=== PATIENT | male | born 1975 | race Caucasian/White ===

== ENCOUNTER 2024-07-16 12:35 | Inpatient (IN) | payer SELFPAY ==
[2024-07-16] VITALS (7 sets, daily range): BP systolic 132–188; BP diastolic 68–94
[~2024-07-16] VITALS: Ht 167.6 cm; Wt 62.1 kg
[~2024-07-16 12:35] MED LIST: AMOXICILLIN500 MG PO; ANAPROX DS550 MG PO; BENTYL10 MG PO; CIPROFLOXACIN500 MG PO; CLEOCIN150 MG PO; DAYPRO600 M1 PO; DOLOBID500 MG PO; FLEXERIL10 MG PO; HYDROCODONE BIT1 T11 PO; MOTRIN800 MG PO; NAPROSYN500 MG PO; NKHM; PENICILLIN-VK500 M1 PO; PEPCID20 MG PO; PRILOSEC20 MG PO; TOBRADEX 0.1%-0.5 ML OPH; TRAMADOL HCL50 MG PO; VALIUM10 MG PO; VICODIN ES 7501 TAB PO; ZANTAC150 MG PO; ZOFRAN ODT4 MG PO
[2024-07-16] MEDS ORDERED: Acetaminophen/Oxycodone 5 MG/325 MG TABLET PO ONE (13:05)
[2024-07-16 14:29] LABS: BASO # 0.1 10*3/uL (0.0-0.1); BASO % 0.5 % (0.0-1.0); EOS # 0.4 10*3/uL (0.0-0.4); EOS % 3.6 % (1.0-4.0); HEMATOCRIT 41.4 % (42.0-52.0); LYMPH # 2.2 10*3/uL (1.3-4.4); LYMPH % 18.7 % (27.0-41.0); MEAN CELL VOLUME 90.6 fl (80.0-94.0); MEAN CORPUSCULAR HGB CONC 33.1 g/dl (33.0-37.0); MONO # 0.6 10*3/uL (0.1-1.0); MONO % 5.4 % (3.0-9.0); NEUT # 8.4 10*3/uL (2.3-7.9); NEUT % 71.5 % (47.0-73.0); PLATELET COUNT AUTOMATED 234 10*3/uL (130-400); RED BLOOD COUNT 4.57 10*6/uL (4.50-5.90); RED CELL DISTRI WIDTH 13.9 % (0-14.5); WHITE BLOOD COUNT 11.7 10*3/uL (4.8-10.8)
[2024-07-16 14:46] LABS: ACT PARTIAL THROMBO TIME 25.2 SECONDS (20.0-32.1)
[2024-07-16 14:51] LABS: ALKALINE PHOSPHATASE 54 U/L (46-116); BUN 9 mg/dl (9-23); CHLORIDE 109 mmol/L (98-107); POTASSIUM 3.9 mmol/L (3.4-5.1); SGPT/ALT 11 U/L (5-49); TOTAL PROTEIN 6.4 gm/dL (6.0-8.0)
[2024-07-16] MEDS ORDERED: Motrin,Rufen800 MG PO (15:01)
[2024-07-16] MEDS ORDERED: CYCLOBENZAPRINE10 MG PO (15:02)
[2024-07-16] MEDS ORDERED: Lidocaine Hydrochloride 30 ML VIAL SC ONE (15:15)
[2024-07-16] MEDS ORDERED: MORPHINE Sulfate 2 MG/ML SYR IV PRN (15:35)
[2024-07-16] MEDS ORDERED: DEXMEDETOMIDINE IN 0.9 % NACL 100 ML IV SCH (16:45)
[2024-07-16] MEDS ORDERED: BISACODYL 10 MG SUPP R PRN (16:55)
[2024-07-16] MEDS ORDERED: Ondansetron Hydrochloride 4 MG/2 ML VIAL IV PRN (16:55)
[2024-07-16] MEDS ORDERED: Magnesium Hydroxide 30 ML UDC PO PRN (16:55)
[2024-07-16] MEDS ORDERED: ACETAMINOPHEN 325 MG TAB PO PRN (16:55)
[2024-07-16] MEDS ORDERED: ACETAMINOPHEN 650 MG SUPP R PRN (16:55)
[2024-07-16] MEDS ORDERED: Acetaminophen/Hydrocodone 5 MG/325 MG TABLET PO PRN (16:55)
[2024-07-16] MEDS ORDERED: BISACODYL 5 MG TAB PO PRN (16:55)
[2024-07-16] MEDS ORDERED: Ketorolac Tromethamine 15 MG/ML VIAL IV ONE (20:20)
[2024-07-16] MEDS ORDERED: Ketorolac Tromethamine 15 MG/ML VIAL IM ONE (20:20)
[2024-07-17] VITALS (7 sets, daily range): BP systolic 142–169; BP diastolic 70–93
[2024-07-17 06:51] LABS: BASO # 0.1 10*3/uL (0.0-0.1); BASO % 0.8 % (0.0-1.0); EOS # 0.5 10*3/uL (0.0-0.4); EOS % 6.7 % (1.0-4.0); HEMATOCRIT 39.7 % (42.0-52.0); LYMPH # 2.2 10*3/uL (1.3-4.4); LYMPH % 28.8 % (27.0-41.0); MEAN CELL VOLUME 90.8 fl (80.0-94.0); MEAN PLATELET VOLUME 10.5 fl (9.6-12.3); MONO # 0.6 10*3/uL (0.1-1.0); MONO % 7.5 % (3.0-9.0); NEUT # 4.3 10*3/uL (2.3-7.9); NEUT % 55.8 % (47.0-73.0); PLATELET COUNT AUTOMATED 237 10*3/uL (130-400); RED BLOOD COUNT 4.37 10*6/uL (4.50-5.90); RED CELL DISTRI WIDTH 13.9 % (0-14.5); WHITE BLOOD COUNT 7.7 10*3/uL (4.8-10.8)
[2024-07-17 07:16] LABS: BUN 8 mg/dl (9-23); CHLORIDE 107 mmol/L (98-107); CHOLESTEROL 170 mg/dL (<200); FREE T4 0.99 ng/dl (0.89-1.76); LDL CHOLESTEROL 87 mg/dL (9-159); POTASSIUM 3.5 mmol/L (3.4-5.1); TRIGLYCERIDES 224 mg/dl (<150)
[2024-07-17 08:35] LABS: VITAMIN D, 25-HYDROXY 31.2 ng/mL (30-100)
[2024-07-17] MEDS ORDERED: fentaNYL CITRATE 100 MCG/2 ML VIAL IV PRN (09:10)
[2024-07-17] MEDS ORDERED: Enoxaparin Sodium 40 MG/0.4 ML SYR SC SCH (10:00)
[2024-07-17] MEDS ORDERED: Ketorolac Tromethamine 30 MG/ML VIAL IV SCH (14:00)
[2024-07-18] VITALS: BP 143/76
[2024-07-18] MEDS ORDERED: Ketorolac Tromethamine 15 MG/ML VIAL IV PRN (06:00)
[2024-07-18 08:00] VITALS: BP 143/76
[2024-07-18] MEDS ORDERED: IBUPROFEN 800 MG TAB PO PRN (11:35)
[2024-07-18 12:00] VITALS: BP 155/79
[2024-07-18] MEDS ORDERED: Cyclobenzaprine Hydrochlorid 10 MG TAB PO SCH (14:00)
[2024-07-18 16:00] VITALS: BP 134/75
[2024-07-18 20:00] VITALS: BP 143/88
[2024-07-19] VITALS: BP 160/82
[2024-07-19 08:00] VITALS: BP 144/80
[2024-07-19 12:00] VITALS: BP 153/73
[2024-07-19 16:00] VITALS: BP 159/86
[2024-07-19 20:00] VITALS: BP 162/82
[2024-07-20] VITALS: BP 155/77
[2024-07-20 06:40] LABS: BUN 11 mg/dl (9-23); CHLORIDE 108 mmol/L (98-107); POTASSIUM 3.6 mmol/L (3.4-5.1)
[2024-07-20 08:00] VITALS: BP 161/80
[2024-07-20 10:20] VITALS: BP 152/78
[2024-07-20 12:00] VITALS: BP 151/75
[2024-07-20] MEDS ORDERED: HYDROCODONE-AC1 EAC1 PO (12:19)
== END 2024-07-20 15:24 | disposition home or self-care (01) | DRG 200 ==
LOC: ED 12:35 → EDHOLD 16:06 → 4E 16:06 → EDHOLD 16:55 → 4E 07-17 12:02
PROVIDERS: Internal Medicine; Student in an Organized Health Care Education/Training Program; ADMIT Internal Medicine; ATTEND Internal Medicine
PROC: 0W9900Z Drainage of Right Pleural Cavity with Drainage Device, Open Approach (ICD-10-PCS; principal; 2024-07-16)
DX: S27.0XXA Traumatic pneumothorax, initial encounter (principal); J98.11 Atelectasis; Z71.6 Tobacco abuse counseling; J44.9 Chronic obstructive pulmonary disease, unspecified; E78.1 Pure hyperglyceridemia; S70.312A Abrasion, left thigh, initial encounter; S40.011A Contusion of right shoulder, initial encounter; S50.01XA Contusion of right elbow, initial encounter; F17.210 Nicotine dependence, cigarettes, uncomplicated; D72.9 Disorder of white blood cells, unspecified; R73.9 Hyperglycemia, unspecified; W01.0XXA Fall on same level from slipping, tripping and stumbling without subsequent striking against object, initial encounter; Y93.89 Activity, other specified; Y92.89 Other specified places as the place of occurrence of the external cause; Y99.8 Other external cause status

== ENCOUNTER 2024-07-24 19:04 | Emergency (ER) | payer SELFPAY ==
[~2024-07-24] VITALS: Ht 167.6 cm; Wt 62.6 kg
[~2024-07-24 19:04] MED LIST changes: +CYCLOBENZAPRINE10 MG PO; +HYDROCODONE-AC1 EAC1 PO; +Motrin,Rufen800 MG PO
[2024-07-24 19:12] VITALS: BP 169/89
[2024-07-24] MEDS ORDERED: Acetaminophen/Oxycodone 5 MG/325 MG TABLET PO ONE (19:20)
== END 2024-07-24 21:06 | disposition home or self-care (01) ==
LOC: ED 19:04
DX: S46.911A Strain of unspecified muscle, fascia and tendon at shoulder and upper arm level, right arm, initial encounter (principal); M19.90 Unspecified osteoarthritis, unspecified site; F17.200 Nicotine dependence, unspecified, uncomplicated; Z98.890 Other specified postprocedural states; W17.89XA Other fall from one level to another, initial encounter; Y93.89 Activity, other specified; Y92.009 Unspecified place in unspecified non-institutional (private) residence as the place of occurrence of the external cause; Y99.8 Other external cause status

== ENCOUNTER 2025-01-30 09:30 | Emergency (ER) | payer SELFPAY ==
[~2025-01-30] VITALS: Ht 167.6 cm; Wt 61.9 kg
[2025-01-30 09:37] VITALS: BP 155/92
[2025-01-30 09:59] LABS: BASO # 0.1 10*3/uL (0.0-0.1); BASO % 0.7 % (0.0-1.0); EOS # 0.2 10*3/uL (0.0-0.4); EOS % 1.6 % (1.0-4.0); MEAN CELL VOLUME 88.4 fl (80.0-94.0); MEAN CORPUSCULAR HGB 29.7 pg (27.0-31.0); MEAN CORPUSCULAR HGB CONC 33.6 g/dl (33.0-37.0); MEAN PLATELET VOLUME 9.4 fl (9.6-12.3); MONO # 0.5 10*3/uL (0.1-1.0); MONO % 5.9 % (3.0-9.0); NEUT # 6.4 10*3/uL (2.3-7.9); NEUT % 70.6 % (47.0-73.0); PLATELET COUNT AUTOMATED 262 10*3/uL (130-400); RED BLOOD COUNT 5.09 10*6/uL (4.50-5.90); RED CELL DISTRI WIDTH 13.7 % (0-14.5); WHITE BLOOD COUNT 9.1 10*3/uL (4.8-10.8)
[2025-01-30 10:17] LABS: BUN 11 mg/dl (9-23); CHLORIDE 108 mmol/L (98-107); POTASSIUM 3.8 mmol/L (3.4-5.1)
[2025-01-30] MEDS ORDERED: ASPIRIN 325 MG TAB PO ONE (12:40)
== END 2025-01-30 13:11 | disposition home or self-care (01) ==
LOC: ED 09:30 → EDHOLD 12:54 → ED 13:11
PROVIDERS: Internal Medicine
DX: R07.89 Other chest pain (principal); F17.200 Nicotine dependence, unspecified, uncomplicated; Z98.890 Other specified postprocedural states